=== PATIENT | female | born 1975 | race Two or more races ===

== ENCOUNTER → 2018-11-14 | Emergency (ER) | payer OTHER ==
[~2018-11-14] VITALS: Ht 180.3 cm; Wt 63.5 kg
[~2018-11-14] MED LIST: VITAMIN B122500 MC1; VITAMIN D2000 UNIT
== END | disposition left against medical advice (07) ==
LOC: ER 16:30
DX: Z53.20 Procedure and treatment not carried out because of patient's decision for unspecified reasons (principal)